=== PATIENT | female | born 1975 ===

== ENCOUNTER 2025-04-25 18:18 | Emergency (ER) | payer SELFPAY ==
[~2025-04-25] VITALS: Ht 152.4 cm; Wt 59.0 kg
[2025-04-25 19:00] VITALS: PULSE 63; RESP 20; TEMP 98; O2SAT 100
== END 2025-04-25 21:00 | disposition left against medical advice (07) ==
LOC: ER 21:00
DX: R22.9 Localized swelling, mass and lump, unspecified (principal)